=== PATIENT | male | born 1970 | race Caucasian/White ===

== ENCOUNTER 2024-01-19 11:28 | Emergency (ER) | payer OTHER ==
[2024-01-19 12:01] VITALS: TEMP 98.3
[2024-01-19] MEDS: MORPHINE SULFATE 4 MG/ML SYRINGE IVP STA (12:31)
[2024-01-19] MEDS: SODIUM CHLORIDE 0.9% 1,000 ML IV STA ×2 (12:31→14:36)
[2024-01-19 12:55] LABS: Anisocytosis Slight; Basophils % (A) 0 %; Eosinophils # (A) 0.1 k/uL (0-0.7); Eosinophils % (A) 1 %; HCT 38.1 % (39.0-53.0); Lymphocytes # (A) 0.4 k/uL (1.0-4.8); Lymphocytes % (A) 4 %; MCH 25.2 pg (25.0-35.0); MCHC 31.5 g/dL (31.0-37.0); MCV 80.1 fL (80.0-100.0); Mean Platelet Volume 7.1; Microcytosis Slight; Monocytes # (A) 0.5 k/uL (0-1.0); Monocytes % (A) 5 %; Neutrophils # (A) 9.7 k/uL (1.3-7.7); Neutrophils % (A) 90 %; Platelet Count 365 k/uL (150-450); RBC 4.76 m/uL (4.30-5.90); RDW 17.2 % (11.5-15.5); WBC 10.7 k/uL (3.8-10.6)
[2024-01-19 13:04] LABS: INR 0.9 (<1.2); Prothrombin Time 9.6 sec (10.0-12.5)
[2024-01-19 13:08] LABS: ALT 46 U/L (4-49); AST 54 U/L (17-59); African American GFR (CKD) >90 (>60 ml/min/1.73 sqM); Albumin 4.2 g/dL (3.5-5.0); Alkaline Phosphatase 76 U/L (38-126); Anion Gap 11 mmol/L; Blood Urea Nitrogen 12 mg/dL (9-20); Calcium 8.6 mg/dL (8.4-10.2); Carbon Dioxide 21 mmol/L (22-30); Chloride 97 mmol/L (98-107); Glucose 120 mg/dL (74-99); Magnesium 1.5 mg/dL (1.6-2.3); Non-African American GFR(CKD) >90 (>60 ml/min/1.73 sqM); Potassium 4.2 mmol/L (3.5-5.1); Sodium 129 mmol/L (137-145); Total Bilirubin 0.4 mg/dL (0.2-1.3); Total Protein 6.7 g/dL (6.3-8.2)
--- NOTE | 2024-01-19 13:14 | CT ---
EXAMINATION TYPE: CT ChestAbdPelvis w con CT DLP: 674.4 mGycm, Automated exposure control for dose reduction was used. DATE OF EXAM: 01/19/2024 12:51 PM COMPARISON: None. CLINICAL INDICATION:Male, 53 years old with history of fall, pain. sternum/ant chest and epigastrium; PHH, right side rib pain after fall. Technique: CT ChestAbdPelvis w con; Multiple axial images were obtained. Two-dimensional coronal and sagittal reconstructions were obtained. Contrast used:100 ml mL of Isovue 300 with IV Contrast, Oral contrast used: without Oral Contrast Findings: CHEST: LUNGS/ PLEURA: The lung parenchyma appears unremarkable. AIRWAY: Patent and unremarkable. HEART: Size within normal limits. MEDIASTINUM: No gross evidence of adenopathy. VASCULATURE: No aortic aneurysm. MUSCULOSKELETAL: Multiple right rib fractures including right Rib 11 the with mild displacement. Rib 10 posteriorly with mild displacement rib Rib 9 without displacement. Rib 7 with mild Rib 6 with moderate displacement No evidence of left rib fracture. The spine and other osseous structures appear intact. SOFT TISSUES/LYMPH NODES: Unremarkable. LOWER NECK: No significant findings. ABDOMEN: ABDOMEN LIVER: Unremarkable GALLBLADDER AND BILE DUCTS: Unremarkable. PANCREAS: Pancreatic parenchyma enhances relatively homogenously is some area within the pancreatic n dinesh slightly decreased attenuation compared to the remainder of the parenchyma series 201 image 64.. There is some fat stranding/fluid around the pancreas. SPLEEN: Unremarkable. ADRENAL GLANDS: Unremarkable. KIDNEYS AND URETERS: No evidence of hydronephrosis or renal calculus. The ureters are unremarkable. PELVIS BLADDER: Bladder. REPRODUCTIVE: Unremarkable. ABDOMEN & PELVIS STOMACH AND BOWEL: No evidence of bowel obstruction. PERITONEUM: No evidence of pneumoperitoneum or free fluid. VASCULATURE: No evidence of aortic aneurysm. MUSCULOSKELETAL: No acute osseous abnormalities transitional vertebrae at L5. LYMPH NODES: No gross evidence for lymphadenopathy. SOFT TISSUE/ABDOMINAL WALL: Unremarkable IMPRESSION: 1. Multiple right rib fractures including ribs 6 through 11 with sparing of rib 8. 2. Fat stranding changes around the pancreas correlate serum lipase and history. Unclear if this is traumatic or acute pancreatitis possibly relating to a pancreatic contusion.
[2024-01-19 14:01] VITALS: RESP 18
[2024-01-19] MEDS: KETOROLAC 15 MG/ML 1 ML VIAL IVP STA (14:31)
[2024-01-19] MEDS: LIDOCAINE 4% PATCH TOPICAL STA (14:32)
[2024-01-19] MEDS: MAGNESIUM SULFATE-D5W PMX 1 GM in DEXTROSE/WATER 1 100ML.BAG IVPB ONE (14:36)
[2024-01-19] MEDS: HYDROmorphone 0.5 MG/0.5 ML SYRINGE IVP STA (14:37)
[2024-01-19 14:58] VITALS: BP 158/63; PULSE 93
--- NOTE | 2024-01-19 15:12 | ED ---
General Adult HPI - General Chief complaint: Chest Pain Stated complaint: Fall Time Seen by Provider: 01/19/24 12:10 Source: patient, RN notes reviewed, old records reviewed Mode of arrival: EMS - History of Present Illness Initial comments: Patient is a 53-year-old male who presents emergency department after a fall. Patient fell sometime last night and landed on porcelain bathtub. Fell on his right chest. Denies hitting his head or loss of consciousness. States he slipped which caused him to fall. Endorses significant bilateral rib pain, primarily on the right anterior ribs. Also endorses epigastric abdominal pain. States all this started after the fall. Denies any drug or alcohol use. Denies any lower abdominal pain. Has no other acute complaints at this time. Presents over concern for the severe pain. Has no back pain. Is not on blood thinners. Fall occurred over 12 hours ago. - Related Data Home Medications Medication Instructions Recorded Confirmed Albuterol Sulfate [Ventolin HFA] 1 - 2 puff INHALATION RT-QID PRN 01/19/24 01/19/24 Atorvastatin [Lipitor] 10 mg PO W/SUPPER 01/19/24 01/19/24 Famotidine 40 mg PO W/SUPPER 01/19/24 01/19/24 Fluticasone/Umeclidin/Vilanter 1 puff INHALATION RT-DAILY 01/19/24 01/19/24 [Trelegy Ellipta 100-62.5-25] Levothyroxine Sodium [Synthroid] 125 mcg PO W/SUPPER 01/19/24 01/19/24 amLODIPine BESYLATE/BENAZEPRIL 1 cap PO W/SUPPER 01/19/24 01/19/24 [Lotrel 10-40 mg Capsule] Allergies Allergy/AdvReac Type Severity Reaction Status Date / Time No Known Allergies Allergy Verified 01/19/24 12:06 Review of Systems ROS Statement: Those systems with pertinent positive or pertinent negative responses have been documented in the HPI. Review of Systems: CONST: Denies fever EYES: Denies blurry vision ENT: Denies nasal congestion C/V: Endorses right-sided chest pain RESP: Denies shortness of breath GI: Endorses epigastric abdominal pain : Denies dysuria SKIN: Denies rash. MSK: Endorses rib pain NEURO: Denies headache ROS Other: All systems not noted in ROS Statement are negative. Past Medical History Past Medical History: Hyperlipidemia, Hypertension, Thyroid Disorder History of Any Multi-Drug Resistant Organisms: None Reported Past Surgical History: No Surgical Hx Reported Past Psychological History: No Psychological Hx Reported Smoking Status: Current every day smoker Past Alcohol Use History: Occasional Past Drug Use History: None Reported General Exam - General Exam Comments Initial Comments: General: Appears in moderate distress secondary to pain. HEAD: Normal with no signs of head trauma. Negative Santos sign, negative r accoon eyes. EYES: PERRLA, EOMI, conjunctiva normal, no discharge. Pulls are 3 mm and equal bilaterally. ENT: Hearing grossly intact, normal oropharynx. RESPIRATORY: Clear breath sounds bilaterally. No wheezes, rales, or rhonchi. No evidence of flail chest. C/V: Regular rate and rhythm. S1 and S2 auscultated, no edema, peripheral pulses 2+ and intact throughout ABD: Abdomen soft, nondistended. Tenderness to patient in the epigastric region. No guarding, rebound tenderness, peritoneal signs. EXT: Tenderness to palpation along the sternum as well as the right ribs. SKIN: No rashes or lesions observed on exposed skin. NEURO: Alert and oriented x 4. GCS 15. No focal deficits. Course Vital Signs 01/19/24 01/19/24 01/19/24 11:32 11:53 12:30 Temperature 98.3 F Pulse Rate 82 80 Pulse Rate [ 71 Card Boxer ] Respiratory 16 20 Rate Blood Pressure 132/94 126/75 O2 Sat by Pulse 99 97 Oximetry 01/19/24 01/19/24 13:00 14:26 Temperature Pulse Rate 87 93 Pulse Rate [ Card Boxer ] Respiratory 18 18 Rate Blood Pressure 137/79 158/63 O2 Sat by Pulse 97 96 Oximetry Medical Decision Making - Medical Decision Making Was pt. sent in by a medical professional or institution (, PA, QUALITATIVE EXECUTIVE RESEARCHER, urgent care, hospital, or group home...) When possible be specific @ -No Did you speak to anyone other than the patient for history (EMS, parent, family, police, friend...)? What history was obtained from this source @ -No Did you review nursing and triage notes (agree or disagree)? Why? @ -I reviewed and agree with nursing and triage notes Were old charts reviewed (outside hosp., previous admission, EMS record, old EKG, old radiological studies, urgent care reports/EKG's, group home records)? Report findings @ -No old charts were reviewed Differential Diagnosis (chest pain, altered mental status, abdominal pain women, abdominal pain men, vaginal bleeding, weakness, fever, dyspnea, syncope, headache, dizziness, GI bleed, back pain, seizure, CVA, palpatations, mental health, musculoskeletal)? @ -Differential Musculoskeletal Muscular strain, contusion, ligament sprain, fracture, arthritis, septic arthritis, bursitis, cellulitis, muscle spasm, nerve compression, DVT, arterial occlusion, herpes zoster, electrolyte abnormality, tumor.... This is not meant to be in all inclusive list EKG interpreted by me (3pts min.). @ -As above X-rays interpreted by me (1pt min.). @ -None done CT interpreted by me (1pt min.). @ -CT chest abdomen pelvis revealed findings concerning for multiple rib fractures on the right, including ribs 6 through 11. No rib fracture of rib 8. Patient has no cardiac injury that is obvious on CT. Patient also has some fat stranding around the pancreas, differential includes traumatic pancreatitis versus pancreatitis. U/S interpreted by me (1pt. min.). @ -None done What testing was considered but not performed or refused? (CT, X-rays, U/S, labs)? Why? @ -None What meds were considered but not given or refused? Why? @ -None Did you discuss the management of the patient with other professionals (professionals i.e. , PA, QUALITATIVE EXECUTIVE RESEARCHER, lab, RT, psych nurse, geriatric social work professor, burlap man, teacher, conservation enforcement officer, outpatient case manager)? Give summary @ -Discussed CT results with radiologist Dr. Garcia. Discussed the patient with on-call trauma surgeon Dr. Lakhani who accepted the patient onto his service. Dr. Lakhani was notified that the patient decided to leave [place] after initially accepting admission. Was smoking cessation discussed for >3mins.? @ -No Was critical care preformed (if so, how long)? @ -Yes, 34 minutes. Were there social determinants of health that impacted care today? How? (Homelessness, low income, unemployed, alcoholism, drug addiction, transportation, low edu. Level, literacy, decrease access to med. care, retirement, rehab)? @ -No Was there de-escalation of care discussed even if they declined (Discuss DNR or withdrawal of care, Hospice)? DNR status @ -No What co-morbidities impacted this encounter? (DM, HTN, Smoking, COPD, CAD, Cancer, CVA, ARF, Chemo, Hep., AIDS, mental health diagnosis, sleep apnea, morbid obesity)? @ -None Was patient admitted / discharged? Hospital course, mention meds given and route, prescriptions, significant lab abnormalities, going to OR and other pertinent info. @ -Patient presents emergency department after a fall over 24 hours ago. Does not meet trauma activation criteria. However there is concern for rib injury. He is complaining of pain in the chest as well as epigastric region. Patient is having some substernal chest pain as well on palpation. Therefore we will obta in screening EKG as well as troponin for cardiac contusion. Will obtain trauma labs as well as CT imaging of the chest abdomen pelvis. No concern for head injury at this time as he did not suffer loss of consciousness and did not strike his head. Patient was in agreement this plan. Vital signs currently within acceptable limits. EKG shows no signs of acute ischemia. Imaging reveals fractures of multiple ribs on the right as well as possible traumatic pancreatitis versus acute pancreatitis. Patient's laboratory studies remarkable for slightly elevated troponin of 0.042. This is concerning for possible cardiac contusion considering the mechanism of injury. Patient also has an elevated lipase of 3000 which supports traumatic versus acute pancreatitis. Labs remarkable for mild hyponatremia of 129, hypochloremia of 97. Mild hypomagnesemia as well of 1.5. I did the patient at this time. I recommended admission. He is still having pain. Patient will be readministered pain medications. He is in agreement this plan. I spoke with Dr. Lakhani of trauma surgery who accepted the patient onto his service. When I went to update the patient again, patient decides that he wants to leave AGAINST MEDICAL ADVICE and does not want to be admitted. Dr. Lakhani notified of this decision. The patient was apprised of the potential risks of leaving the hospital AGAINST MEDICAL ADVICE, including serious complications, permanent disability, and . At the time of my interview the patient, the patient was alert, oriented, and capable. Patient signed AMA form, which was witnessed and signed by nursing staff, and placed in patient's chart. I urged the patient to return to the hospital as soon as possible to complete evaluation and treatment. Undiagnosed new problem with uncertain prognosis? @ -No Drug Therapy requiring intensive monitoring for toxicity (Heparin, Nitro, Insulin, Cardizem)? @ -No Were any procedures done? @ -No Diagnosis/symptom? @ -Fall, multiple rib fractures, pancreatitis, elevated troponin with concern for cardiac contusion Acute, or Chronic, or Acute on Chronic? @ -Acute Uncomplicated (without systemic symptoms) or Complicated (systemic symptoms)? @ -Complicated Side effects of treatment? @ -No Exacerbation, Progression, or Severe Exacerbation? @ -No Poses a threat to life or bodily function? How? (Chest pain, USA, VT, pneumonia, PE, COPD, DKA, ARF, appy, cholecystitis, CVA, Diverticulitis, Homicidal, Suicidal, threat to staff... and all critical care pts) @ -Yes - Lab Data Result diagrams: 01/19/24 12:27 01/19/24 12: Lab Results 01/19/24 01/19/24 01/19/24 Range/Units 12:27 12:27 12:27 WBC 10.7 H (3.8-10.6) k/uL RBC 4.76 (4.30-5.90) m/uL Hgb 12.0 L (13.0-17.5) gm/dL Hct 38.1 L (39.0-53.0) % MCV 80.1 (80.0-100.0) fL MCH 25.2 (25.0-35.0) pg MCHC 31.5 (31.0-37.0) g/dL RDW 17.2 H (11.5-15.5) % Plt Count 365 (150-450) k/uL MPV 7.1 Neutrophils % 90 % Lymphocytes % 4 % Monocytes % 5 % Eosinophils % 1 % Basophils % 0 % Neutrophils # 9.7 H (1.3-7.7) k/uL Lymphocytes # 0.4 L (1.0-4.8) k/uL Monocytes # 0.5 (0-1.0) k/uL Eosinophils # 0.1 (0-0.7) k/uL Basophils # 0.0 (0-0.2) k/uL Anisocytosis Slight Microcytosis Slight PT 9.6 L (10.0-12.5) sec INR 0.9 (<1.2) APTT 23.0 (22.0-30.0) sec Sodium 129 L (137-145) mmol/L Potassium 4.2 (3.5-5.1) mmol/L Chloride 97 L (98-107) mmol/L Carbon Dioxide 21 L (22-30) mmol/L Anion Gap 11 mmol/L BUN 12 (9-20) mg/dL Creatinine 0.60 L (0.66-1.25) mg/dL Est GFR (CKD-EPI)AfAm >90 (>60 ml/min/1.73 sqM) Est GFR (CKD-EPI)NonAf >90 (>60 ml/min/1.73 sqM) Glucose 120 H (74-99) mg/dL Calcium 8.6 (8.4-10.2) mg/dL Magnesium 1.5 L (1.6-2.3) mg/dL Total Bilirubin 0.4 (0.2-1.3) mg/dL AST 54 (17-59) U/L ALT 46 (4-49) U/L Alkaline Phosphatase 76 (38-126) U/L Troponin I (0.000-0.034) ng/mL Total Protein 6.7 (6.3-8.2) g/dL Albumin 4.2 (3.5-5.0) g/dL Lipase (23-300) U/L 01/19/24 01/19/24 Range/Units 12:27 13:23 WBC (3.8-10.6) k/uL RBC (4.30-5.90) m/uL Hgb (13.0-17.5) gm/dL Hct (39.0-53.0) % MCV (80.0-100.0) fL MCH (25.0-35.0) pg MCHC (31.0-37.0) g/dL RDW (11.5-15.5) % Plt Count (150-450) k/uL MPV Neutrophils % % Lymphocytes % % Monocytes % % Eosinophils % % Basophils % % Neutrophils # (1.3-7.7) k/uL Lymphocytes # (1.0-4.8) k/uL Monocytes # (0-1.0) k/uL Eosinophils # (0-0.7) k/uL Basophils # (0-0.2) k/uL Anisocytosis Microcytosis PT (10.0-12.5) sec INR (<1.2) APTT (22.0-30.0) sec Sodium (137-145) mmol/L Potassium (3.5-5.1) mmol/L Chloride (98-107) mmol/L Carbon Dioxide (22-30) mmol/L Anion Gap mmol/L BUN (9-20) mg/dL Creatinine (0.66-1.25) mg/dL Est GFR (CKD-EPI)AfAm (>60 ml/min/1.73 sqM) Est GFR (CKD-EPI)NonAf (>60 ml/min/1.73 sqM) Glucose (74-99) mg/dL Calcium (8.4-10.2) mg/dL Magnesium (1.6-2.3) mg/dL Total Bilirubin (0.2-1.3) mg/dL AST (17-59) U/L ALT (4-49) U/L Alkaline Phosphatase (38-126) U/L Troponin I 0.042 H* (0.000-0.034) ng/mL Total Protein (6.3-8.2) g/dL Albumin (3.5-5.0) g/dL Lipase 3078 H (23-300) U/L - EKG Data -: EKG Interpreted by Me EKG Comments: 12-lead Electrocardiogram Interpretation Note EKG was reviewed and interpreted by myself. 12-lead ECG performed at 1144 is interpreted by me as revealing normal sinus rhythm at a rate of 73 beats per minute. [place] is normal. [place] interval is 158 ms, QRS duration is 96 ms, QTc is 322 ms.. There were no ST or T wave abnormalities to suggest myocardial ischemia or injury. R wave progression across the precordium was satisfactory. By my interpretation this EKG is non-diagnostic for acute ischemia. Critical Care Time Critical Care Time: Yes Total Critical Care Time: 34 Disposition Clinical Impression: Elevated troponin, Multiple rib fractures, Pancreatitis, Fall Disposition: LEFT AGAINST MEDICAL ADVICE Condition: Undetermined Referrals: Viviana Colorado DO [Primary Care Provider] - 1-2 days Time of Disposition: 14:40
== END 2024-01-19 14:42 | disposition left against medical advice (07) ==
LOC: SUPCPDRO 11:28 → EC 11:28
DX: S22.41XA Multiple fractures of ribs, right side, initial encounter for closed fracture (principal); K85.90 Acute pancreatitis without necrosis or infection, unspecified; R79.89 Other specified abnormal findings of blood chemistry; F17.200 Nicotine dependence, unspecified, uncomplicated; Z53.29 Procedure and treatment not carried out because of patient's decision for other reasons; W01.0XXA Fall on same level from slipping, tripping and stumbling without subsequent striking against object, initial encounter
CPT/HCPCS: 36415; 93005; 80053; 83690; 83735; 84484; 85025; 85610; 85730; 71260; 74177; 99291; 96374; 96375; 96361; J2270; J1885; Q9967